=== PATIENT | male | born 1980 | race American Indian/Alaskan Native ===

== ENCOUNTER 2019-12-24 22:43 | Emergency (ER) | payer SELFPAY ==
[2019-12-25 00:08] LABS: Basophils % (Auto) 0.8 % (0.0-1.8); Eosinophils % (Auto) 10.7 % (0.0-4.3); Lymphocytes % (Auto) 28.6 % (13.4-35.0); Monocytes % (Auto) 6.9 % (0.0-7.3)
[2019-12-25 00:19] LABS: Alanine Aminotransferase 9 units/L (7-56); Albumin 3.9 g/dL (3.9-5); BUN/Creatinine Ratio 11; Blood Urea Nitrogen 9 mg/dL (9-20); Calcium 9.1 mg/dL (8.4-10.2); Hemolysis Index 11
[2019-12-25 00:24] LABS: Bilirubin,Urine NEG (Negative); Blood,Urine NEG (Negative); Color,Urine Yellow (Yellow); Mucus,Urine 1+ /HPF; Protein,Urine <15 mg/dL mg/dL (Negative); WBC,Urine < 1.0 /HPF (0.0-6.0)
[2019-12-25 00:40] VITALS: BP 116/77
[2019-12-25 00:44] LABS: Basophils # (Auto) 0.1 K/mm3 (0.0-0.1); Eosinophils # (Auto) 0.8 K/mm3 (0.0-0.4); Lymphocytes # (Auto) 2.1 K/mm3 (1.2-5.4); Monocytes # (Auto) 0.5 K/mm3 (0.0-0.8)
[2019-12-25 00:57] LABS: Hematocrit 39.4 % (35.5-45.6); Hemoglobin 12.9 gm/dl (11.8-15.2); Mean Corpuscular HGB Conc 33 % (32-34); Mean Corpuscular Volume 90 fl (84-94); Platelet Count 171 K/mm3 (140-440); Red Cell Distribution Width 14.1 % (13.2-15.2)
--- NOTE | 2019-12-25 02:20 | Emergency Department Report ---
ED Abdominal Pain HPI - General Chief Complaint: Abdominal Pain Stated Complaint: ABD PAIN Source: patient Mode of arrival: Ambulatory Limitations: No Limitations - History of Present Illness Initial Comments: Patient is a 39-year-old -[place]enian male with no past medical history who presents to the ED with complaint of acute onset persistent diffuse abdominal pain intermittently with rectal pain when he is having a bowel movement for the last 2 days. Patient states that he has had recurrent constipation and that the rectal pain only occurs initially when he starts having a bowel movement. Patient denies dizziness, syncope, nausea, vomiting, chest pain, shortness of breath, fever, chills, dysuria, hematochezia, hematemesis, cough, chills, change in vision, testicular pain, urinary frequency and urgency or back pain. MD Complaint: abdominal pain, other (rectal pain) -: Sudden, days(s) (2) Location: diffuse Radiation: none Migration to: no migration Severity: mild Severity scale (0 -10): 2 Quality: aching, sharp Consistency: intermittent Improves With: nothing Worsens With: nothing Associated Symptoms: denies other symptoms. denies: nausea, vomiting, diarrhea, fever, chills, constipation, dysuria, hematemesis, hematochezia, anorexia, syncope - Related Data Previous Rx's Medication Instructions Recorded Last Taken Type Dicyclomine [Bentyl] 20 mg PO Q6H PRN #24 tablet 12/25/19 Unknown Rx Docusate Sodium [Colace CAP] 100 mg PO Q12H PRN #60 capsule 12/25/19 Unknown Rx Famotidine [Pepcid] 20 mg PO BID #20 tablet 12/25/19 Unknown Rx Allergies Allergy/AdvReac Type Severity Reaction Status Date / Time No Known Allergies Allergy Verified 12/24/19 22:58 ED Review of Systems ROS: Stated complaint: ABD PAIN Other details as noted in HPI Constitutional: denies: chills, fever Eyes: denies: eye pain, eye discharge, vision change ENT: denies: ear pain, throat pain Respiratory: denies: cough, shortness of breath, wheezing Cardiovascular: denies: chest pain, palpitations Endocrine: no symptoms reported Gastrointestinal: abdominal pain (Diffuse), other (Rectal pain). denies: nausea, diarrhea Genitourinary: denies: urgency, dysuria Musculoskeletal: denies: back pain, joint swelling, arthralgia Skin: denies: rash, lesions Neurological: denies: headache, weakness, paresthesias Psychiatric: denies: anxiety, depression Hematological/Lymphatic: denies: easy bleeding, easy bruising ED Past Medical Hx - Past Medical History Previous Medical History?: No - Surgical History Past Surgical History?: No - Social History Smoking Status: Never Smoker Substance Use Type: None - Medications Home Medications: Home Medications Medication Instructions Recorded Confirmed Last Taken Type Dicyclomine [Bentyl] 20 mg PO Q6H PRN #24 tablet 12/25/19 Unknown Rx Docusate Sodium [Colace CAP] 100 mg PO Q12H PRN #60 capsule 12/25/19 Unknown Rx Famotidine [Pepcid] 20 mg PO BID #20 tablet 12/25/19 Unknown Rx ED Physical Exam - General Limitations: No Limitations General appearance: alert, in no apparent distress - Head Head exam: Present: atraumatic, normocephalic, normal inspection - Eye Eye exam: Present: normal appearance, PERRL, EOMI Pupils: Present: normal accommodation - ENT ENT exam: Present: normal exam, normal orophraynx, mucous membranes moist, TM's normal bilaterally, normal external ear exam - Neck Neck exam: Present: normal inspection, full ROM - Respiratory Respiratory exam: Present: normal lung sounds bilaterally. Absent: respiratory distress, wheezes, rales, rhonchi, chest wall tenderness, accessory muscle use, decreased breath sounds - Cardiovascular Cardiovascular Exam: Present: regular rate, normal rhythm, normal heart sounds. Absent: systolic murmur, diastolic murmur, rubs, gallop - GI/Abdominal GI/Abdominal exam: Present: soft, normal bowel sounds. Absent: tenderness, guarding, rebound, hyperactive bowel sounds, hypoactive bowel sounds - Rectal Rectal exam: Present: deferred - Extremities Exam Extremities exam: Present: normal inspection, full ROM, normal capillary refill - Back Exam Back exam: Present: normal inspection, full ROM. Absent: tenderness, CVA tenderness (R), muscle spasm, paraspinal tenderness, vertebral tenderness - Neurological Exam Neurological exam: Present: alert, oriented X3, CN II-XII intact, normal gait, reflexes normal - Psychiatric Psychiatric exam: Present: normal affect, normal mood - Skin Skin exam: Present: warm, dry, intact, normal color. Absent: rash ED Course Vital Signs 12/24/19 12/25/19 22:54 02:24 Temperature 96.0 F L 97.9 F Pulse Rate 65 Respiratory 18 Rate Blood Pressure 116/77 O2 Sat by Pulse 99 Oximetry ED Medical Decision Making - Lab Data Result diagrams: 12/24/19 23:16 12/24/19 23:16 - Medical Decision Making This is a 39-year-old -Armenian male with no past medical history who presents to the ED with complaint of acute onset persistent diffuse abdominal pain intermittently with rectal pain when he is having a bowel movement for the last 2 days. Patient states that he has had recurrent constipation and that the rectal pain only occurs initially when he starts having a bowel movement. In the ED, patient is alert and oriented x3 and is not in any distress. Lab test results were reviewed and are all nonactionable. On reevaluation, patient abdominal pain and rectal pain have resolved. Patient states that the rectal pain only occurs when he is having a bowel movement and that his stool is always hard. Rectal exam was deferred. Patient was discharged home on stool soft eners and pain medication and was advised to eat high-fiber diet, drink more fluids to control constipation. Patient rectal pain is likely due to anal fissures from chronic constipation. Patient was advised to return to the ED immediately if symptoms get worse otherwise follow-up with his primary care physician in 5 to 7 days for reevaluation. - Differential Diagnosis Constipation; anal fissures; hemorrhoids; gastroenteritis Critical care attestation.: If time is entered above; I have spent that time in minutes in the direct care of this critically ill patient, excluding procedure time. ED Disposition Clinical Impression: Acute anal fissure, Anal or rectal pain Abdominal pain Qualifiers: Abdominal location: generalized Qualified Code(s): R10.84 - Generalized abdominal pain Constipation Qualifiers: Constipation type: other constipation type Qualified Code(s): K59.09 - Other constipation Disposition: DC-01 TO HOME OR SELFCARE Is pt being admited?: No Does the pt Need Aspirin: No Condition: Stable Instructions: Anal Fissure (ED), Abdominal Pain (ED) Additional Instructions: Take medication with food, drink plenty of fluids and follow-up with your primary care physician in 5 to 7 days for reevaluation. Return to the ED immediately if symptoms get worse. Prescriptions: Dicyclomine [Bentyl] 20 mg PO Q6H PRN #24 tablet PRN Reason: abdominal pain Docusate Sodium [Colace CAP] 100 mg PO Q12H PRN #60 capsule PRN Reason: Constipation Famotidine [Pepcid] 20 mg PO BID #20 tablet Referrals: [facility] [Provider Group] - 3-5 Days [facility] [place] - 3-5 Days Forms: Work/School Release Form(ED) Time of Disposition: 02:19 Print Language: ICELANDIC
== END 2019-12-25 02:24 | disposition home or self-care (01) ==
LOC: ED 22:43
DX: R10.84 Generalized abdominal pain (principal); K59.00 Constipation, unspecified; K60.2 Anal fissure, unspecified
CPT/HCPCS: 36415; 80053; 81001; 85025